=== PATIENT | female | born 1990 | race African-American/Black ===

== ENCOUNTER 2021-08-31 05:17 | Emergency (ER) | payer OTHER ==
[~2021-08-31] VITALS: Ht 167.6 cm; Wt 68.0 kg
[2021-08-31 05:31] VITALS: BP 140/95
[2021-08-31 07:33] LABS: HEMATOCRIT 40.8 % (36.0-48.0); HEMOGLOBIN 13.4 g/dL (12.0-16.0); MEAN CORPUSCULAR HEMOGLOBIN 29.6 pg (28.0-32.0); MEAN CORPUSCULAR VOLUME 89.9 fL (81.0-99.0); PLATELET 190 x1000/uL (130-400); RED BLOOD CELL COUNT 4.53 mill/uL (4.2-5.4); RED CELL DISTRIBUTION WIDTH 12.9 % (11.6-14.6)
== END 2021-08-31 08:04 | disposition home or self-care (01) ==
LOC: ER 05:17
DX: U07.1 COVID-19 (principal); B34.9 Viral infection, unspecified; J45.909 Unspecified asthma, uncomplicated
CPT/HCPCS: 36415; 81025; 85027; 99283; C9803; U0003; U0005

== ENCOUNTER 2022-02-20 02:00 | Emergency (ER) | payer MEDICAID, OTHER ==
[~2022-02-20] VITALS: Ht 172.7 cm; Wt 68.0 kg
[2022-02-20] MEDS ORDERED: IBUPROFEN 800MG TABLET PO ONE (03:15)
[2022-02-20] MEDS ORDERED: IBUP-2029 MT (03:34)
[2022-02-20 05:11] VITALS: BP 135/89
== END 2022-02-20 05:12 | disposition home or self-care (01) ==
LOC: ER 02:00
DX: R51.9 Headache, unspecified (principal); R07.0 Pain in throat; J45.909 Unspecified asthma, uncomplicated; Z20.822 Contact with and (suspected) exposure to COVID-19; Z98.890 Other specified postprocedural states
CPT/HCPCS: 81025; 87426; 87804; 99283; C9803

== ENCOUNTER 2022-04-09 02:19 | Emergency (ER) | payer OTHER ==
[~2022-04-09] VITALS: Ht 170.2 cm; Wt 69.2 kg
[~2022-04-09 02:19] MED LIST: IBUP-2029 MT
[2022-04-09] MEDS ORDERED: TOPUD PO (08:26)
[2022-04-09] MEDS ORDERED: OFLO5DRO4 RIGHT EAR (08:26)
[2022-04-09 08:36] VITALS: BP 131/67
== END 2022-04-09 08:39 | disposition home or self-care (01) ==
LOC: ER 02:19
DX: H60.91 Unspecified otitis externa, right ear (principal); J45.909 Unspecified asthma, uncomplicated; Z98.890 Other specified postprocedural states
CPT/HCPCS: 99283

== ENCOUNTER 2023-09-10 15:04 | Emergency (ER) | payer OTHER ==
[~2023-09-10] VITALS: Ht 170.2 cm; Wt 64.0 kg
[~2023-09-10 15:04] MED LIST changes: +OFLO5DRO4 RIGHT EAR; +TOPUD PO
[2023-09-10 15:16] VITALS: O2SAT 100
[2023-09-10] MEDS ORDERED: HYDR26CR2 TP (17:40)
[2023-09-10 17:49] LABS: EOSINOPHILS % 3.3 % (0.0-5.0); HEMOGLOBIN. 12.3 g/dL (12.0-16.0); LYMPHOCYTES % 35.4 % (20.0-50.0); MEAN CORPUSCULAR HEMOGLOBIN 29.4 pg (28.0-32.0); MEAN CORPUSCULAR HGB CONC 33.2 g/dL (31.0-37.0); MEAN CORPUSCULAR VOLUME 88.7 fL (81.0-99.0); MEAN PLATELET VOLUME 8.8 fl (7.4-10.4); NEUTROPHILS % 50.3 % (40.0-76.0); PLATELET 218 x1000/uL (130-400); RED BLOOD CELL COUNT 4.17 mill/uL (4.2-5.4); RED CELL DISTRIBUTION WIDTH 13.3 % (11.6-14.6); WHITE BLOOD COUNT 4.8 x1000/uL (4.5-11.0)
[2023-09-10 18:00] LABS: HCG SCREEN NEGATIVE
[2023-09-10 18:15] LABS: ALANINE AMINOTRANSFERASE 23 IU/L (10-49); ALBUMIN 4.6 g/dL (3.2-4.8); ASPARTATE AMINOTRANSFERASE 26 IU/L (<34); BILIRUBIN TOTAL 0.4 mg/dL (0.1-1.0); CALCIUM 9.3 mg/dL (8.7-10.4); CARBON DIOXIDE 26 mEq/L (21-32); CHLORIDE 106 mEq/L (98-107); CREATININE 0.9 mg/dL (0.6-1.0); GLUCOSE 91 mg/dL (70-105); POTASSIUM 4.3 mEq/L (3.5-5.1); PROTEIN TOTAL 7.7 g/dL (6.0-8.3); SODIUM 139 mEq/L (136-145); UREA NITROGEN BLOOD 14 mg/dL (9-23)
[2023-09-10 19:27] VITALS: BP 135/101; PULSE 80; RESP 16; TEMP 98.2
== END 2023-09-10 19:28 | disposition home or self-care (01) ==
LOC: ER 15:04
DX: K64.9 Unspecified hemorrhoids (principal); K90.9 Intestinal malabsorption, unspecified
CPT/HCPCS: 80053; 84703; 83690; 85025; 36415; 99283; Z7610

== ENCOUNTER 2024-11-16 18:27 | Emergency (ER) | payer OTHER ==
[~2024-11-16] VITALS: Ht 168.9 cm; Wt 64.7 kg
[~2024-11-16 18:27] MED LIST changes: +HYDR26CR2 TP
[2024-11-16 18:28] VITALS: O2SAT 100
[2024-11-16 18:35] VITALS: BP 138/88; PULSE 75; RESP 16; TEMP 36.8; O2SAT 100
== END 2024-11-16 22:23 | disposition left against medical advice (07) ==
LOC: ER 18:27
DX: M54.9 Dorsalgia, unspecified (principal); M54.2 Cervicalgia; J45.909 Unspecified asthma, uncomplicated; Z98.890 Other specified postprocedural states; Z53.21 Procedure and treatment not carried out due to patient leaving prior to being seen by health care provider